=== PATIENT | female | born 1940 | race Caucasian/White ===

== ENCOUNTER 2022-03-29 05:32 | Outpatient (CLI) | payer MEDICARE ==
[~2022-03-29] VITALS: Ht 193 cm; Wt 87.4 kg
[2022-03-29] MEDS ORDERED: MULT-1136 PO (10:10)
[2022-03-29] MEDS ORDERED: APIX5TAB PO (10:10)
[2022-03-29] MEDS ORDERED: FURO-124 PO (10:10)
[2022-03-29] MEDS ORDERED: EZET10TA49 PO (10:10)
[2022-03-29] MEDS ORDERED: OMEP20TA56 PO (10:10)
[2022-03-29] MEDS ORDERED: VITAMIN D (10:10)
[2022-03-29] MEDS ORDERED: CARV3.122 PO (10:10)
[2022-03-29] MEDS ORDERED: IBAN150T16 PO (10:10)
[2022-03-29] MEDS ORDERED: LORA10TA7 PO (10:10)
[2022-03-29] MEDS ORDERED: SERT-413 PO (10:10)
[2022-03-29] MEDS ORDERED: CLOP-31 PO (10:10)
[2022-03-29] MEDS ORDERED: POTA-177 PO (10:10)
[2022-03-29] MEDS ORDERED: FINA5TAB6 PO (10:10)
[2022-03-29] MEDS ORDERED: TMSL.4C PO (10:10)
[2022-03-29] MEDS ORDERED: DIGO125T3 PO (10:10)
== END 2022-03-29 10:14 | disposition home or self-care (01) ==
LOC: PREOP 05:32
PROVIDERS: ATTEND Surgery
DX: Z01.818 Encounter for other preprocedural examination (principal)

== ENCOUNTER 2022-04-05 11:43 | Day surgery (SDC) | payer MEDICARE ==
--- NOTE | 2022-03-29 06:47 | HISTORY AND PHYSICAL ---
DATE OF SERVICE: 04/05/2022 ATTENDING PRIMARY CARE PHYSICIAN: Dr. Stern in [place], [place]. HISTORY OF PRESENT ILLNESS: The patient is a 81-year-old male who was referred over to us for right inguinal hernia. He reports that approximately one year ago, he developed pain and swelling and noticed something extruding out of the right inguinal region. He states that this was initially mild; however, over time had grown larger in size and become more painful. He was seen in the office and found to have a reducible right inguinal hernia; however, tender to palpation. He states that he is otherwise eating well and having normal bowel movements. This patient also does have a history of coronary artery disease and atrial fibrillation and is on two oral anticoagulation medications. He has recently obtained cardiac clearance and to hold his blood thinners. PAST MEDICAL HISTORY: Coronary artery disease, atrial fibrillation, osteoporosis, benign prostatic hypertrophy, hypertension, hypercholesterolemia, gastroesophageal reflux disease. PAST SURGICAL HISTORY: Coronary artery bypass grafting x2 2017, pacemaker implantation 2019, cardiac catheterization and stent placement x2 in 03/2021. ALLERGIES: NO KNOWN DRUG ALLERGIES. MEDICATIONS: Boniva 150 mg monthly, Eliquis 5 mg b.i.d., Lasix 40 mg daily, carvedilol 3.125 mg b.i.d., Plavix 75 mg daily, digoxin 0.125 mg daily, ezetimibe 10 mg daily, finasteride 5 mg daily, loratadine 10 mg daily, nitroglycerin 0.4 mg p.r.n., omeprazole 20 mg daily, potassium 10 mEq b.i.d., sertraline 25 mg daily. Tamsulosin 0.4 mg daily. SOCIAL HISTORY: Previous smoked 16-pack years, quit in 1973. Previous alcohol, quit in 1973. VITAL SIGNS: Blood pressure 108/71, current weight 192.3 pounds, 6 feet 4 inches. REVIEW OF SYSTEMS: This is well-nourished male, currently in no acute distress. He is not experiencing any shortness of breath or difficulty breathing. No chest pain, palpitations or diaphoresis. No nausea or vomiting, no diarrhea or constipation. No fever or chills. No recent inadvertent weight loss. All other review of systems negative. PHYSICAL EXAMINATION: LUNGS: Clear. Good breath sounds bilaterally. HEART: Regular, no murmurs. EXTREMITIES: No lower extremity edema. Negative Homans sign. HEENT: No scleral icterus. No cervical lymphadenopathy. ABDOMEN: Soft, nondistended. There is a right inguinal hernia, which is palpable and reducible; however, tender to palpation. SKIN: Warm and dry. ASSESSMENT AND PLAN: A 81-year-old male with symptomatic reducible right inguinal hernia. The natural history of hernias were explained to the patient as well as the potential risk of incarceration and strangulation. He is in full understanding of this and the risks and benefits of surgery and would like to proceed with a laparoscopic right inguinal hernia repair with mesh, which we will proceed with scheduling. He will hold his anticoagulation two days before his procedure and will resume them one day after the surgery. Job ID: [id number] DocumentID: [id number] Dictated Date: 03/22/2022 17:41:32 Data Sme Date: 03/22/2022 18:05:00 Dictated By: GWENDOLYN EATON MD
[~2022-04-05] VITALS: Ht 193 cm; Wt 87.4 kg
[2022-04-05] VITALS (12 sets, daily range): BP systolic 141–173; BP diastolic 86–115
[~2022-04-05 11:43] MED LIST: APIX5TAB PO; CARV3.122 PO; CLOP-31 PO; DIGO125T3 PO; EZET10TA49 PO; FINA5TAB6 PO; FURO-124 PO; IBAN150T16 PO; LORA10TA7 PO; MULT-1136 PO; OMEP20TA56 PO; POTA-177 PO; SERT-413 PO; TMSL.4C PO; VITAMIN D
--- NOTE | 2022-04-05 11:53 | Progress Note-Pre Operative ---
Pre-Operative Progress Note Date H&P Reviewed: Apr 05, 2022 Time H&P Reviewed: 11:50 History & Physical: H&P Reviewed, Patient Examed, No changes noted Pre-Operative Diagnosis: Right inguinal hernia ARTHUR KEITA APRN Apr 05, 2022 11:53
[2022-04-05] MEDS ORDERED: HYDR-3817 PO (11:55)
--- NOTE | 2022-04-05 11:56 | Discharge Inst-Surgical ---
D/C Lap Instructions-KIDO Reconcile Patient Problems Problems Reviewed?: Yes New, Converted, or Re-Newed RX: RX on Chart Follow Up Appt in 2 weeks Activity as tolerated No driving for 24 hours No driving while on pain medications Incentive Spirometry use every 2 hours while awake Regular Diet Symptoms to Report: Fever over 101 degree F, Nausea/Vomiting Infection Signs and Symptoms to report: Increased redness, Foul odor of wound, Increased drainage Bathing instructions: May shower Operative Area Clean/Dry; Keep incision clean/dry If any problems/questions: Contact your physician or go to Emergency Room ARTHUR KEITA APRN Apr 05, 2022 11:55
[2022-04-05] MEDS ORDERED: ceFAZolin INJECTION 2,000 MG in NS (IVPB) 50 ML IV ONE (12:00)
[2022-04-05] MEDS ORDERED: LACTATED RINGERS 1,000 ML IV PRN (12:00)
[2022-04-05] MEDS ORDERED: ACETAMINOPHEN 325 MG TABLET PO PRN (12:00)
[2022-04-05] MEDS ORDERED: ONDANSETRON 4 MG/2 ML (SDV) Z0FRAN IVP PRN ×2 (12:00→15:00)
[2022-04-05] MEDS ORDERED: HYDROcodone/APAP 5 MG/325 MG (LORTAB) TAB PO ONE (12:00)
[2022-04-05] MEDS ORDERED: BUP/EPI 0.5% 1:200,000 (SENSORCAINE) 30 ML VIAL ONE (12:04)
[2022-04-05] MEDS ORDERED: ceFAZolin INJECTION 2,000 MG ONE (12:23)
[2022-04-05] MEDS ORDERED: NS (IVPB) 50 ML ONE (12:23)
[2022-04-05] MEDS ORDERED: fentaNYL INJ 100 MCG/2 ML AMP ONE (13:00)
[2022-04-05] MEDS ORDERED: LIDOCAINE PF 2% 5 ML (XYLOCAINE) VIAL ONE (13:00)
[2022-04-05] MEDS ORDERED: SEVOFLURANE (ULTANE) 15 ML INHAL SOLN ONE (13:00)
[2022-04-05] MEDS ORDERED: ONDANSETRON 4 MG/2 ML (SDV) Z0FRAN ONE (13:00)
[2022-04-05] MEDS ORDERED: proPOfol 200 MG/20 ML (DIPRIVAN) VIAL IV ONE (13:00)
[2022-04-05] MEDS ORDERED: ROCURONIUM 50 MG/5 ML (ZEMURON) VIAL IV ONE (13:00)
[2022-04-05] MEDS ORDERED: morphine INJ 4 MG/ML 1 ML (VIAL/SYRINGE) IVP PRN (14:15)
[2022-04-05] MEDS ORDERED: morphine INJ 10 MG/ML 1ML (SYR OR VIAL) ONE (14:59)
--- NOTE | 2022-04-05 14:59 | Anesthesia-General Post-Op ---
General Patient Condition Mental Status/LOC: Same as Preop Cardiovascular: Satisfactory Nausea/Vomiting: Absent Respiratory: Satisfactory Pain: Controlled Complications: Absent Post Op Complications Complications None Follow Up Care/Instructions Patient Instructions None needed. Anesthesia/Patient Condition Patient Condition Patient is doing well, no complaints, stable vital signs, no apparent adverse anesthesia problems. No complications reported per nursing. SHARI DAVENPORT CRNA Apr 05, 2022 14:59
[2022-04-05] MEDS ORDERED: morphine INJ 10 MG/ML 1ML (SYR OR VIAL) IVP ONE (15:00)
[2022-04-05] MEDS ORDERED: PROMETHAZINE INJ 25 MG/ML (PHENERGAN) AMP IVP ONE (15:00)
[2022-04-05] MEDS ORDERED: HYDROmorphone 2 MG/ML VIAL (DILAUDID) IV ONE (15:00)
[2022-04-05] MEDS: LABETALOL HCL 20 MG/4 ML VIAL IV PRN ×2 (15:18→15:33)
[2022-04-05] MEDS ORDERED: HYDROcodone/APAP 5 MG/325 MG (LORTAB) TAB ONE (16:06)
--- NOTE | 2022-04-05 20:13 | OPERATIVE REPORT ---
DATE OF SERVICE: 04/05/2022 ATTENDING PRIMARY CARE PHYSICIAN: Dr. Stern in [place], [place]. PREOPERATIVE DIAGNOSIS: Symptomatic reducible right inguinal hernia. POSTOPERATIVE DIAGNOSIS: Symptomatic reducible right inguinal pantaloon hernia with both indirect and direct component. PROCEDURE: Laparoscopic right inguinal hernia repair with mesh. SURGEON: Gwendolyn Eaton MD ANESTHESIA: General endotracheal. ESTIMATED BLOOD LOSS: Minimal. FINDINGS: Symptomatic reducible right inguinal pantaloon hernia with both indirect and direct component. DISPOSITION: The patient tolerated the procedure well. INDICATIONS: The patient is a 81-year-old male referred over to us for symptomatic right inguinal hernia. He noticed a lesion 1 year ago and was seen and at that time decided to proceed with conservative management; however, over time, the lesion has grown larger in size and become more painful. He was found to have a reducible right inguinal hernia; however, tender to palpation. He is otherwise eating well and having normal bowel movements. He also recently obtained cardiac clearance and to hold his oral anticoagulants. DESCRIPTION OF PROCEDURE: The patient was brought to the operating room, laid supine on the table. After adequate IV pain and sedative medications and general endotracheal intubation, the abdomen was prepped and draped in standard surgical fashion. An 0.5% Marcaine with epinephrine was then used to anesthetize the infraumbilical rim and a crescent-shaped skin incision made. The sharp towel clamp was used to retract the abdominal wall anteriorly and a Veress needle inserted with a low opening pressure of 0 mmHg and the abdomen was then insufflated to 15 mmHg pressure. The Veress needle was removed and a 5 mm XL trocar was placed followed by a 10 mm 45-degree angled laparoscope visualized in the peritoneal cavity. A 4-quadrant abdominal exploration was performed. A pantaloon hernia, which encompassed a combination of both indirect and direct right inguinal hernia, which was reducible was identified. There was no left inguinal hernia component. What was visualized, the colon and small bowel as well as omentum were normal. Under direct visualization, we then proceeded to place bilateral 5 mm ports. Under direct visualization after the skin and peritoneal lining were anesthetized using 0.5% Marcaine with epinephrine and transverse skin incision was made using #15 blade. The patient was then placed in Trendelenburg position. The peritoneal lining was then opened laterally towards the conjoined tendon and inguinal ligament using the Sonicision. We then proceeded medially until Miki's ligament was reached. We then proceeded with inferior dissection encompassing both the direct and indirect inguinal hernia components. The spermatic cord and its surrounding contents were identified and spared throughout the process. Good hemostasis was observed. A medium size 3DMax polypropylene mesh was placed at the 10 mm port site and tacked to Miki's ligament medially with an absorbable tack into the conjoined tendon laterally. The peritoneal lining was then placed over the mesh and a few absorbable tacks were placed to keep this in place with visualization with good hemostasis. The 10 mm port site fascia and peritoneum were then closed under direct visualization using a Bakari-Kerry device and 0 Vicryl suture. The abdomen was desufflated and the remaining ports were removed. All skin incisions were closed using 4-0 Monocryl running subcuticular sutures. Wounds were then cleaned and covered with Dermabond. The patient tolerated the procedure well. POSTOPERATIVE PLAN: We will start IV and oral pain medication as well as a clear liquid diet. Once he is tolerating clears with good pain control with oral pain medications, ambulating well, we will discharge him home where he will be instructed to do no heavy lifting or exertion for the next 2 weeks as well as to continue to wear a scrotal support for that time duration. Job ID: [id number] DocumentID: [id number] Dictated Date: 04/05/2022 15:11:05 [employer] Spr[employer] Supervisor Date: 04/05/2022 20:10:00 Dictated By: GWENDOLYN EATON MD
== END 2022-04-05 17:05 | disposition home or self-care (01) ==
LOC: EDSEX 11:43 → SDC 11:43
PROVIDERS: ATTEND Surgery
DX: K40.90 Unilateral inguinal hernia, without obstruction or gangrene, not specified as recurrent (principal); Z87.891 Personal history of nicotine dependence
CPT/HCPCS: 49650; 87081; C1781